=== PATIENT | female | born 1955 | race Hispanic/Latino ===

== ENCOUNTER → 2023-06-09 | Outpatient (CLI) | payer OTHER ==
[2023-06-09 21:43] VITALS: PULSE 53; RESP 12
[2023-06-09 22:04] VITALS: PULSE 49; RESP 12
[2023-06-09 22:30] VITALS: PULSE 51; RESP 12
[2023-06-09 23:00] VITALS: PULSE 46; RESP 12
[2023-06-09 23:31] VITALS: PULSE 48; RESP 14
[2023-06-10] VITALS (11 sets, daily range): PULSE 45–58; RESP 10–14
== END | disposition home or self-care (01) ==
LOC: SLP 10:00
PROVIDERS: ATTEND Internal Medicine Cardiovascular Disease
DX: G47.33 Obstructive sleep apnea (adult) (pediatric) (principal)
CPT/HCPCS: 95810